=== PATIENT | male | born 1990 | race African-American/Black ===

== ENCOUNTER 2017-08-11 12:37 | Emergency (ER) | payer SELFPAY ==
[2017-08-11] MEDS ORDERED: CEFTRIAXONE INJ 250 MG VIAL IM ONE (13:39)
[2017-08-11] MEDS ORDERED: AZITHROMYCIN 250 MG TABLET PO ONE (13:39)
[2017-08-11] MEDS ORDERED: IBUPROFEN 800 MG TABLET PO ONE (13:39)
[2017-08-11] MEDS ORDERED: LIDOCAINE 1% INJ-PF (10 MG/ML) 30 ML SDV INJ ONE (13:39)
--- NOTE | 2017-08-11 13:42 | ER Document Report ---
ED GI/ - General Chief Complaint: Penile Discharge Stated Complaint: STD CHECK/DISCHARGE Time Seen by Provider: 08/11/17 13:36 Mode of Arrival: Ambulatory Information source: Patient Notes: 27-year-old male presented ED for complaint of penile discharge burning with urination for the last 3 days. He states he has had unprotected sex with his "baby mamma ". Is alert oriented respirations regular and unlabored speaking in full sentences. TRAVEL OUTSIDE OF THE [place] IN LAST 30 DAYS: No - HPI Patient complains to provider of: Other - Penile discharge Onset: Other - The days Quality of pain: Burning Severity at maximum: Mild Severity in ED: Mild Pain Level: 2 Associated symptoms: Penile discharge, Other - Burning with urination Exacerbated by: Denies Relieved by: Denies Similar symptoms previously: Yes Recently seen / treated by doctor: Yes - Related Data Allergies/Adverse Reactions: No Known Allergies Allergy (Verified 08/11/17 12:38) Past Medical History - General Information source: Patient - Social History Smoking Status: Current Every Day Smoker Cigarette use (# per day): Yes - 3cig Chew tobacco use (# tins/day): No Frequency of alcohol use: daily Drug Abuse: None Lives with: Family Family History: Reviewed & Not Pertinent Patient has suicidal ideation: No Patient has homicidal ideation: No - Past Medical History Cardiac Medical History: Reports: None Pulmonary Medical History: Reports: None EENT Medical History: Reports: None Neurological Medical History: Reports: None Endocrine Medical History: Reports: None Renal/ Medical History: Reports: None Malignancy Medical History: Reports None GI Medical History: Reports: None Musculoskeltal Medical History: Reports None Skin Medical History: Reports None Psychiatric Medical History: Reports: None Traumatic Medical History: Reports: None Infectious Medical History: Reports: None Surgical Hx: Negative Past Surgical History: Reports: None - Immunizations Immunizations up to date: Yes Hx Diphtheria, Pertussis, Tetanus Vaccination: Yes Review of Systems - Review of Systems Constitutional: No symptoms reported EENT: No symptoms reported Cardiovascular: No symptoms reported Respiratory: No symptoms reported Gastrointestinal: No symptoms reported Genitourinary: Burning Male Genitourinary: Penile discharge Musculoskeletal: No symptoms reported Skin: No symptoms reported Hematologic/Lymphatic: No symptoms reported Neurological/Psychological: No symptoms reported -: Yes All other systems reviewed and negative Physical Exam - Vital signs Vitals: Temp Pulse Resp BP Pulse Ox 98.6 F 99 16 138/84 H 98 08/11/17 12:41 08/11/17 12:41 08/11/17 12:41 08/11/17 12:41 08/11/17 12:41 - Genitourinary Inspection: Penile discharge Tenderness: Nontender Cremasteric reflex: Normal Scrotum: Normal Course - Re-evaluation Re-evalutation: 08/11/17 16:50 Patient became nauseated during his stay in the emergency room he did vomit in the bathroom after taking his azithromycin. Gonorrhea test is positive he was treated with Rocephin. I am concerned that he may not have got enough of the azithromycin. The number that he left as a week is a callback number states that there is no voice mailbox set up on that number. He will need a prescription for azithromycin 1 g 1 time. 08/11/17 20:15 Patient return call a little earlier he was informed of his diagnosis and he he was instructed to return to the ED front desk assistant and there would be a prescription for azithromycin for him and for him to start taking it tomorrow as he is to up the dose that he got today. Patient verbalized understanding and agreement with this plan. - Vital Signs Vital signs: Temp Pulse Resp BP Pulse Ox 97.8 F 87 16 145/84 H 100 08/11/17 14:46 08/11/17 14:46 08/11/17 14:46 08/11/17 14:46 08/11/17 14:46 - Laboratory Laboratory results interpreted by me: 08/11/17 08/11/17 13:30 13:30 Urine Ketones 20 H Urine Blood SMALL H Urine Urobilinogen 2.0 H Ur Leukocyte Esterase TRACE H N.gonorrhoeae DNA (PCR) DETECTED H Discharge - Discharge Clinical Impression: Urethritis, Concern about STD in male without diagnosis Condition: Stable Disposition: HOME, SELF-CARE Additional Instructions: Urethritis You have urethritis, an infection of the urethra. The usual symptoms are pain on urination and discharge. The infection is often caused by gonorrhea or chlamydia. Treatment is antibiotics. In addition, any sexual contacts should be evaluated by a physician as soon as possible. As this infection can be transmitted sexually, refrain from sexual activity until the infection is confirmed as healed by your physician. If gonorrhea or chlamydia is found on culture, the health department must be notified. Call the doctor at once if you develop difficulty passing your urine, high fever, rash, joint swelling, or other new symptoms. CEPHALOSPORINS: An antibiotic of the cephalosporin class has been prescribed. This type of antibiotic covers a wide variety of infections, including those of the skin, lungs, middle ear, and urinary tract. This antibiotic is somewhat similar to the penicillin family. In rare cases , a person who is allergic to penicillin will also be allergic to this medication. If you have had a severe allergic reaction to penicillin, and have not taken this antibiotic since that time, notify your doctor. Antibiotics which cover many germs ("broad spectrum" antibiotics) are more likely to cause diarrhea or "yeast" infections. Women prone to vaginal yeast problems may suffer an attack after taking this antibiotic. In infants, oral thrush (white spots "stuck" on the cheek) or yeast diaper rash may result. See your doctor if these problems occur. Call the doctor at once if you develop hives, itching, shortness of breath , or lightheadedness. AZITHROMYCIN: Azithromycin (Zithromax) is a broad spectrum antibiotic in the same class as erythromycin. It can treat a variety of bacterial infections, but is most frequently used for respiratory infections. Azithromycin is extremely long-lasting. It accumulates in body tissues and continues to kill bacteria for many days. In order to improve absorption, Azithromycin should be taken at least one hour before or two hours after a meal. It does not have the same strong tendency to upset the stomach as erythromycin and is usually very well tolerated. Patients who have had a rash or other true allergic reactions to erythromycin should not take this medication. Call if you develop gastrointestinal distress, severe diarrhea, rash, hives, itching, or shortness of breath. FOLLOW-UP CARE: If you have been referred to a physician for follow-up care, call the physician s office for an appointment as you were instructed or within the next two days. If you experience worsening or a significant change in your symptoms, notify the physician immediately or return to the Emergency Department at any time for re-evaluation. Before 9:00 tonight you can call [phone] for the results make it at least 2 hours from now Tomorrow you can after 9 AM you can call [phone] for your results. Prescriptions: Azithromycin 1,000 mg PO ONCE #4 tablet Referrals: WILLIAMS GAGE FNP [Primary Care Provider] - Follow up as needed
[2017-08-11 14:08] LABS: APPEARANCE,URINE CLEAR; BILIRUBIN,URINE NEGATIVE (NEGATIVE); COLOR,URINE YELLOW; GLUCOSE, URINE NEGATIVE (NEGATIVE); KETONES,URINE 20 mg/dL (NEGATIVE); LEUKOCYTE ESTERASE,URINE TRACE (NEGATIVE); NITRITE,URINE NEGATIVE (NEGATIVE); PROTEIN,URINE NEGATIVE (NEGATIVE)
[2017-08-11 14:47] VITALS: BP 145/84
[2017-08-11 15:38] LABS: CHLAM PCR NOT DETECTED (NOT DETECT); GON PCR DETECTED (NOT DETECT)
== END 2017-08-11 14:46 | disposition home or self-care (01) ==
LOC: ER 12:37
DX: A54.01 Gonococcal cystitis and urethritis, unspecified (principal); R30.0 Dysuria; R11.2 Nausea with vomiting, unspecified; F17.210 Nicotine dependence, cigarettes, uncomplicated
CPT/HCPCS: 99283; 96372; 81001; 87491; 87591; J3490; J0696